=== PATIENT | female | born 1965 | race American Indian/Alaskan Native ===

== ENCOUNTER 2021-01-28 11:46 | Outpatient (CLI) | payer BC ==
--- NOTE | 2021-01-28 13:06 | Vascular Lab Report ---
DUPLEX DOPPLER LOWER EXTREMITY VEINS, RIGHT INDICATION / CLINICAL INFORMATION: PAIN IN RIGHT LOWER LEG,RIGHT LEG SWELLING, duration 2 days TECHNIQUE: Duplex doppler imaging was performed through the veins of the right lower extremity using venous compression and other maneuvers. COMPARISON: None available. FINDINGS: COMMON FEMORAL VEIN: Negative. SUPERFICIAL FEMORAL VEIN: Negative. POPLITEAL VEIN: Negative. CALF VEINS: Negative. ADDITIONAL FINDINGS: None. IMPRESSION: No sonographic evidence for DVT Signer Name: Truong Beard MD Signed: 01/28/2021 1:01 PM Workstation Name: [email or web address]
== END 2021-01-28 11:47 | disposition home or self-care (01) ==
LOC: VAS 11:46
DX: M79.661 Pain in right lower leg (principal); M79.89 Other specified soft tissue disorders

== ENCOUNTER 2021-09-20 19:38 | Emergency (ER) | payer BC ==
[2021-09-20] MEDS ORDERED: BUTALB/ACETAMINOPHEN/CAFFEINE TAB PO ONE (20:07)
[2021-09-20] MEDS ORDERED: FAMOTIDINE 20 MG/2 ML INJ IV ONE (20:07)
[2021-09-20] MEDS ORDERED: methylPREDNISolone Sod Succinate 125 MG/2 ML INJ IV ONE (20:07)
--- NOTE | 2021-09-20 20:07 | Emergency Department Report ---
HPI - General Chief Complaint: Allergic Reaction Time Seen by Provider: 09/20/21 20:00 - HPI HPI: Room 4 Patient is a 56-year-old female present with a chief complaint of bee sting. Patient states she is allergic to bee stings approximate 40 minutes ago was stung to the right side of her upper and lower lip. Patient states she has shortness of breath initially and was administered an EpiPen by her neighbor. Patient states she took Benadryl prior to arrival and was transported via EMS. EMS did not administer any medication in the ED the patient states her shortness of breath is improved she just has a headache and feels drowsy from the Benadr yl. Patient denies pruritus or rash ED Past Medical Hx - Past Medical History Previous Medical History?: Yes Hx Hypertension: Yes Hx Headaches / Migraines: Yes - Surgical History Past Surgical History?: Yes Additional Surgical History: tubal ligation. ectopic . hysterectomy - Family History Family history: no significant - Social History Smoking Status: Never Smoker Substance Use Type: None (Denies illicit drug use), Alcohol (Occasional) - Medications Home Medications: Home Medications Medication Instructions Recorded Confirmed Last Taken Type Ibuprofen [Motrin 800 MG tab] 800 mg PO Q8HR PRN #30 tablet 01/02/15 01/10/15 01/10/15 Rx Sulfamethoxazole/Trimethoprim 1 each PO BID #14 tablet 01/02/15 01/10/15 01/10/15 Rx [Bactrim DS TAB] traMADoL [Ultram 50 MG tab] 50 mg PO Q6HR PRN #14 tablet 01/02/15 01/10/15 01/10/15 Rx lisinopriL [Zestril TAB] 20 mg PO QDAY #120 tablet 01/05/15 01/10/15 01/10/15 Rx EPINEPHrine [Epipen 2-Tenzin] 0.3 mg IM ONCE PRN #0.6 ml 09/20/21 Unknown Rx Famotidine [Pepcid] 20 mg PO BID #6 tablet 09/20/21 Unknown Rx Prednisone [predniSONE 10 mg 10 mg PO .TAPER #1 09/20/21 Unknown Rx (6-Day Pack, 21 Tabs)] diphenhydrAMINE [Benadryl CAP] 50 mg PO Q6HR #24 capsule 09/20/21 Unknown Rx ED Review of Systems ROS: Stated complaint: ALLERGIC REACTION Other details as noted in HPI Constitutional: no symptoms reported Eyes: denies: eye pain ENT: denies: throat pain Respiratory: shortness of breath Cardiovascular: denies: chest pain Endocrine: no symptoms reported Gastrointestinal: denies: abdominal pain Genitourinary: denies: dysuria Musculoskeletal: denies: back pain Skin: denies: rash, pruritus Neurological: headache Physical Exam - Physical Exam Vital Signs: Vital Signs 09/20/21 09/20/21 19:38 19:56 Temperature 98.2 F 98.8 F Pulse Rate 111 H 100 H Respiratory 18 22 Rate Blood Pressure 140/83 141/78 O2 Sat by Pulse 99 100 Oximetry Physical Exam: GENERAL: The patient is well-developed well-nourished female lying on stretcher not appearing to be in acute. [] HEENT: Normocephalic. Atraumatic. Extraocular motions are intact. Patient has moist mucous membranes. Lip visualized with otoscope regions of irritation noted but no stingers visualized NECK: Supple. Trachea midline. No stridor CHEST/LUNGS: Clear to auscultation. There is no respiratory distress noted. HEART/CARDIOVASCULAR: Regular. There is no tachycardia. There is no gallop rub or murmur. ABDOMEN: Abdomen is soft, nontender. Patient has normal bowel sounds. There is no abdominal distention. SKIN: There is no rash. There is no edema. There is no diaphoresis. NEURO: The patient is awake, alert, and oriented. The patient is cooperative. The patient has no focal neurologic deficits. The patient has normal speech. GCS 15 MUSCULOSKELETAL: There is no evidence of acute injury. ED Course Vital Signs 09/20/21 09/20/21 19:38 19:56 Temperature 98.2 F 98.8 F Pulse Rate 111 H 100 H Respiratory 18 22 Rate Blood Pressure 140/83 141/78 O2 Sat by Pulse 99 100 Oximetry - Reevaluation(s) Reevaluation #1: 09/20/21 21:42 Patient still doing well ED Medical Decision Making - Differential Diagnosis Bee sting, allergic reaction Critical care attestation.: If time is entered above; I have spent that time in minutes in the direct care of this critically ill patient, excluding procedure time. ED Disposition Clinical Impression: Bee sting, Allergic reaction Disposition: 01 HOME / SELF CARE / HOMELESS Is pt being admited?: No Does the pt Need Aspirin: No Condition: Stable Instructions: How to Use an Auto-Injector Pen, Bee, Wasp, or Hornet Sting, Adult Prescriptions: diphenhydrAMINE [Benadryl CAP] 50 mg PO Q6HR #24 capsule EPINEPHrine [Epipen 2-Tenzin] 0.3 mg IM ONCE PRN #0.6 ml PRN Reason: Allergic Reaction Famotidine [Pepcid] 20 mg PO BID #6 tablet Prednisone [predniSONE 10 mg (6-Day Pack, 21 Tabs)] 10 mg PO .TAPER #1 Referrals: PRIMARY CARE, [Referring] - 3-5 Days Time of Disposition: 21:42
[2021-09-20] MEDS ORDERED: SODIUM CHLORIDE 0.9% 1000 ML 1,000 ML IV ONE (20:08)
[2021-09-20 22:11] VITALS: BP 121/77
== END 2021-09-20 22:10 | disposition home or self-care (01) ==
LOC: ED 19:38
DX: T63.441A Toxic effect of venom of bees, accidental (unintentional), initial encounter (principal); I10 Essential (primary) hypertension; G43.909 Migraine, unspecified, not intractable, without status migrainosus; Y92.89 Other specified places as the place of occurrence of the external cause
CPT/HCPCS: 96361; 96374; 96375; 99283; J2930; J3490; J7030